=== PATIENT | male | born 1930 | race Two or more races ===

== ENCOUNTER 2016-10-26 02:55 | Inpatient (IN) | payer MEDICARE, OTHER ==
[~2016-10-26] VITALS: Ht 167.6 cm; Wt 68.0 kg
--- NOTE | 2016-10-26 02:58 | NUR ---
PT BIB PRIVATE AMBULANCE FROM [facility] FOR MED CLEARANCE AND ADMISSION TO MHU .PT AWAKE AND ALERT ANSWERING SOME SIMPLE QUESTIONS.DENIES PAIN... PT ORIENTED X 2, ABLE TO MAKE NEEDS KNOWN, NO RESP DISTRESS NOTED OR REPORTED UPON ASSESSMENT... MD AT BEDSIDE... PT HERE FOR MED CLEARANCE, THAN PSYCH EVAL, ASSISTED LIVING REPORTS THAT PT HAS BEHAVIORAL DISTURBANCES....
[2016-10-26] MEDS ORDERED: ATOR40TA PO (03:31)
[2016-10-26] MEDS ORDERED: DOCU-170 PO (03:31)
[2016-10-26] MEDS ORDERED: OLAN2.5T3 PO (03:31)
[2016-10-26] MEDS ORDERED: METO-302 PO (03:31)
[2016-10-26] MEDS ORDERED: FLUO10CA26 PO (03:31)
[2016-10-26] MEDS ORDERED: TRAZ-144 PO (03:31)
[2016-10-26] MEDS ORDERED: DONE5TAB34 PO (03:31)
[2016-10-26] MEDS ORDERED: DONE5TAB3 PO (03:31)
[2016-10-26] MEDS ORDERED: FINA5TAB3 PO (03:31)
[2016-10-26] MEDS ORDERED: BISA10SU12 RC (03:31)
[2016-10-26] MEDS ORDERED: METH10TA7 PO (03:31)
[2016-10-26] MEDS ORDERED: ISOS60TA4 PO (03:31)
[2016-10-26] MEDS ORDERED: MAGN400O4 PO (03:31)
[2016-10-26] MEDS ORDERED: MULT1TAB11 PO (03:31)
[2016-10-26] MEDS ORDERED: FENO50CA4 PO (03:31)
--- NOTE | 2016-10-26 04:20 | NUR ---
LABS DRAWN BY [facility] [employer]....
--- NOTE | 2016-10-26 04:25 | NUR ---
PT TAKEN BY SUBSTATION MANAGER VIA [facility], PT ALERT, HAS KNOWLEDGE OF PROCEDURE AND HAS ALLOWED TECH TO TRANSFER TO RADIOLOGY DEPT...
[2016-10-26 04:33] LABS: BASOPHILS % (AUTO) 0.7 % (0.0-2.0); EOSINOPHILS # (AUTO) 0.2 K/uL (0.0-0.7); EOSINOPHILS % (AUTO) 3.4 % (0.0-7.0); HEMATOCRIT 28.4 % (36.7-47.1); HEMOGLOBIN 9.5 g/dL (12.5-16.3); LYMPHOCYTES # (AUTO) 2.1 K/uL (20.0-40.0); LYMPHOCYTES % (AUTO) 41.4 % (20.5-51.5); MEAN CORPUSCULAR HGB CONC 33 g/dL (32.5-36.3); MEAN CORPUSCULAR VOLUME 95.9 fL (73.0-96.2); MONOCYTES # (AUTO) 0.6 K/uL (2.0-10.0); MONOCYTES % (AUTO) 11.2 % (0.0-11.0); NEUTROPHILS # (AUTO) 2.1 K/uL (1.8-8.9); NEUTROPHILS % (AUTO) 43.3 % (38.5-71.5); PLATELET COUNT (AUTO) 283 K/uL (152-348); RED BLOOD CELL COUNT(AUTO) 2.96 MIL/uL (4.06-5.63); RED CELL DISTRIBUTION WIDTH 13.7 % (12.1-16.2)
[2016-10-26 04:39] LABS: *BILIRUBIN,URIN NEGATIVE (NEGATIVE); *BLOOD, URINE Trace-intact (NEGATIVE); *CLARITY,URINE CLEAR (CLEAR); *COLOR,URINE STRAW (YELLOW); *KETONES,URINE NEGATIVE (NEGATIVE); *PROTEIN,URINE NEGATIVE (NEGATIVE); *UROBILINOGEN,URINE 0.2 E.U./dl (NORMAL); LEUKOCYTE ESTERASE ,URINE NEGATIVE (NEGATIVE); NITRITE, URINE NEGATIVE (NEGATIVE); UGLUCOSE NEGATIVE (NEGATIVE)
[2016-10-26 04:43] LABS: AMMONIA 29 umol/L (11-32)
[2016-10-26 04:45] LABS: ETHANOL < 3 MG/DL (0-0)
[2016-10-26 04:49] LABS: *AMPHETAMINE, URINE NEGATIVE (NEGATIVE); *BARBITURATE, URINE NEGATIVE (NEGATIVE); *CANNABINOID, URINE NEGATIVE (NEGATIVE); *COCCAINE, URINE NEGATIVE (NEGATIVE); *OPIATE, URINE NEGATIVE (NEGATIVE); *PHENCYCLIDINE SCREEN,URINE NEGATIVE (NEGATIVE)
[2016-10-26 04:53] LABS: BACTERIA,URINE NONE SEEN /HPF (NONE SEEN); RBC,URINE 0-3 /HPF (0-3); SQUAMOUS EPITHELIAL CELL,UR FEW /HPF (NONE SEEN); WBC,URINE NONE SEEN /HPF (0-3)
[2016-10-26 04:55] LABS: THYROID STIMULATING HORMONE 4.509 mIU/mL (0.358-3.740)
[2016-10-26 05:19] LABS: CALCIUM 9.4 mg/dL (8.5-10.1); CARBON DIOXIDE 27 mmol/L (21-32); CHLORIDE 107 mmol/L (98-107); CREATININE 1.3 mg/dL (0.6-1.3); GLUCOSE 98 mg/dL (74-106); POTASSIUM 4.1 mmol/L (3.5-5.1); SODIUM SERUM 142 mmol/L (136-145); UREA NITROGEN, BLOOD 31 mg/dL (7-18)
[2016-10-26 05:26] LABS: ALANINE AMINOTRANSFERASE 16 U/L (16-63); ALBUMIN 3.1 g/dL (3.4-5.0); ALKALINE PHOSPHATASE 37 U/L (50-136); ASPARTATE AMINOTRANSFERASE 23 U/L (15-37); BILIRUBIN,DIRECT 0.1 mg/dL (0.0-0.2); BILIRUBIN,TOTAL 0.2 mg/dL (0.2-1.0); TOTAL PROTEIN, SERUM 6.9 g/dL (6.4-8.2)
[2016-10-26 05:29] LABS: ACETAMINOPHEN < 2.0 ug/mL (10-30)
--- NOTE | 2016-10-26 06:26 | NUR ---
PT HAS BEEN MEDICALLY CLEARED... QASIM PLUNKETTT CALLED, LEFT MESSAGE FOR PSYCH EVAL....
--- NOTE | 2016-10-26 06:56 | NUR ---
Patient signed out to me by Dr. Byrd and he remains medically cleared for psychiatric evaluation. Lang is aware.
--- NOTE | 2016-10-26 08:06 | NUR ---
Lang Stephenson at bedside for psych eval.
--- NOTE | 2016-10-26 09:03 | NUR ---
Pt trans to MHU, NAD noted.
[2016-10-26] MEDS ORDERED: ACETAMINOPHEN 325 MG TABLET PO PRN (09:45)
[2016-10-26] MEDS ORDERED: MAG HYDROX/AL HYDROX/SIMETH 30 ML LIQUID UDC PO PRN (09:45)
[2016-10-26] MEDS ORDERED: MAGNESIUM HYDROXIDE 30 ML LIQUID UDC PO PRN ×2 (09:45→11:00)
--- NOTE | 2016-10-26 10:00 | NUR ---
0905 ADMIT TO U A 86 YEAR OLD MALE [employer] FROM ER PER W/C ,PLACED ON 5150 FOR GRAVELY DISABLED.PATIENT ATTEMPTED TO ELOPE FROM THE FACILITY, CONFUSED AND BEHAVIOR UNABLE TO MANAGE BY STAFF. PATIENT ALERT AND OX1, CALM AND COOPERATIVE WHEN CARE IS RENDERED. RESPIRATION EVEN AND UNLABORED ,NO ACUTE DISTRESS. DENIES S/S PAIN, WILL CONTINUE TO MONITOR . BODY CHECK DONE: SKIN TEAR ON LEFT HAND , CLEAN AND COVER WITH TRANSPARENT DRESSING. , [employer]TER UTILITY OPERATOR AND NOTIFIED ABOUT THE ADMISSION.
[2016-10-26] MEDS ORDERED: BISACODYL 10 MG SUPP.RECT RC PRN (11:00)
[2016-10-26 16:08] VITALS: BP 130/51
[2016-10-26] MEDS: DOCUSATE SODIUM 100 MG CAPSULE PO SCH (17:52)
[2016-10-26] MEDS: LORAZEPAM 0.5 MG TABLET PO PRN (17:54)
[2016-10-26 20:42] VITALS: BP 142/67
[2016-10-26] MEDS: OLANZAPINE ZYDIS 5 MG TAB.RAPDIS PO SCH (21:44)
[2016-10-26] MEDS: ATORVASTATIN 40 MG TABLET PO SCH (21:44)
[2016-10-27 07:30] VITALS: BP_SYST 115; BP_SYST 151; BP_DIAS 50; BP_DIAS 88
[2016-10-27] MEDS: DOCUSATE SODIUM 100 MG CAPSULE PO SCH ×2 (08:31→17:30)
[2016-10-27] MEDS: DONEPEZIL 10 MG TABLET PO SCH (08:31)
[2016-10-27] MEDS: FENOFIBRATE NANOCRYSTALLIZED 145 MG TABLET PO SCH (08:31)
[2016-10-27] MEDS: FINASTERIDE 5 MG TABLET PO SCH (08:31)
[2016-10-27] MEDS: METOPROLOL SUCCINATE XL 25 MG TAB.SR.24H PO SCH (08:32)
[2016-10-27] MEDS: OLANZAPINE ZYDIS 5 MG TAB.RAPDIS PO SCH ×2 (08:33→21:00)
[2016-10-27] MEDS: ISOSORBIDE MONONITRATE 60 MG TAB.SR.24H PO SCH (08:40)
[2016-10-27] MEDS: METHIMAZOLE 5 MG TABLET PO SCH (08:42)
[2016-10-27] MEDS: MULTIVIT, IRON, MIN NO. 8, FA TABLET PO SCH (08:44)
[2016-10-27] MEDS ORDERED: FENOFIBRATE 200 MG PO SCH (09:00)
[2016-10-27] MEDS ORDERED: METHIMAZOLE 10 MG PO SCH (09:00)
--- NOTE | 2016-10-27 10:43 | NUR ---
daughter, geo called. aware of patient requesting for his clothes and shoes. daughter geo made comment that this request for clothing is an anticipated need to leave the facility. discussed with charge nurse shanique who is aware of this from previous discussion with geo. will monitor patient . patient remains calm while looking for his clothing
[2016-10-27 15:40] VITALS: BP 93/42
[2016-10-27 15:55] VITALS: BP 123/48
--- NOTE | 2016-10-27 15:56 | NUR ---
bp recheck , denies discomfort
--- NOTE | 2016-10-27 16:00 | NUR ---
oob, walking with walker, steady. dressed up ready to go home because it is 4pm and will meet his daughter and son. will try to medicate
[2016-10-27] MEDS: LORAZEPAM 0.5 MG TABLET PO PRN (16:07)
[2016-10-27 20:21] VITALS: BP 95/45
[2016-10-27] MEDS: ATORVASTATIN 40 MG TABLET PO SCH (21:17)
--- NOTE | 2016-10-27 22:00 | NUR ---
received to care, lying in bed, asleep, but easy to awaken. remains pleasant upon approach. compliant with staff. no agitation, noted. bedtime dose of zyprexa was held due to b/p of 95/45, which didnt do up, even after being given fluids, and food. assisted as needed. denies any dizziness, or other symptoms. as of 2199, he remains asleep, in bed. no distress noted. will continue to monitor closely.
--- NOTE | 2016-10-28 06:00 | NUR ---
slept 9.5 hours, total.
[2016-10-28 07:30] VITALS: BP 119/49
[2016-10-28] MEDS: DONEPEZIL 10 MG TABLET PO SCH (08:06)
[2016-10-28] MEDS: MULTIVIT, IRON, MIN NO. 8, FA TABLET PO SCH (08:06)
[2016-10-28] MEDS: DOCUSATE SODIUM 100 MG CAPSULE PO SCH ×2 (08:06→16:13)
[2016-10-28] MEDS: OLANZAPINE ZYDIS 5 MG TAB.RAPDIS PO SCH ×2 (08:06→20:03)
[2016-10-28] MEDS: FENOFIBRATE NANOCRYSTALLIZED 145 MG TABLET PO SCH (08:06)
[2016-10-28] MEDS: ISOSORBIDE MONONITRATE 60 MG TAB.SR.24H PO SCH (08:06)
[2016-10-28] MEDS: FINASTERIDE 5 MG TABLET PO SCH (08:06)
[2016-10-28] MEDS: METOPROLOL SUCCINATE XL 25 MG TAB.SR.24H PO SCH (08:07)
[2016-10-28] MEDS: METHIMAZOLE 5 MG TABLET PO SCH (08:09)
[2016-10-28 15:26] VITALS: BP 120/56
[2016-10-28] MEDS: ATORVASTATIN 40 MG TABLET PO SCH (20:04)
[2016-10-28 20:59] VITALS: BP 140/58
[2016-10-29 07:17] LABS: BASOPHILS % (AUTO) 0.8 % (0.0-2.0); EOSINOPHILS # (AUTO) 0.2 K/uL (0.0-0.7); EOSINOPHILS % (AUTO) 3.5 % (0.0-7.0); HEMATOCRIT 31.9 % (36.7-47.1); HEMOGLOBIN 10.7 g/dL (12.5-16.3); LYMPHOCYTES # (AUTO) 1.9 K/uL (20.0-40.0); LYMPHOCYTES % (AUTO) 39.4 % (20.5-51.5); MEAN CORPUSCULAR HEMOGLOBIN 31.8 uug (23.8-33.4); MEAN CORPUSCULAR HGB CONC 34 g/dL (32.5-36.3); MEAN CORPUSCULAR VOLUME 95.1 fL (73.0-96.2); MONOCYTES # (AUTO) 0.5 K/uL (2.0-10.0); MONOCYTES % (AUTO) 10.5 % (0.0-11.0); NEUTROPHILS # (AUTO) 2.2 K/uL (1.8-8.9); NEUTROPHILS % (AUTO) 45.8 % (38.5-71.5); PLATELET COUNT (AUTO) 298 K/uL (152-348); RED BLOOD CELL COUNT(AUTO) 3.35 MIL/uL (4.06-5.63); RED CELL DISTRIBUTION WIDTH 13.8 % (12.1-16.2); WHITE BLOOD COUNT (AUTO) 4.8 K/uL (3.6-10.2)
[2016-10-29 07:30] VITALS: BP 139/54
[2016-10-29 08:11] LABS: CALCIUM 9.1 mg/dL (8.5-10.1); POTASSIUM 3.9 mmol/L (3.5-5.1)
[2016-10-29] MEDS: METHIMAZOLE 5 MG TABLET PO SCH (10:02)
[2016-10-29] MEDS: DONEPEZIL 10 MG TABLET PO SCH (10:02)
[2016-10-29] MEDS: DOCUSATE SODIUM 100 MG CAPSULE PO SCH ×2 (10:02→17:29)
[2016-10-29] MEDS: FINASTERIDE 5 MG TABLET PO SCH (10:02)
[2016-10-29] MEDS: MULTIVIT, IRON, MIN NO. 8, FA TABLET PO SCH (10:03)
[2016-10-29] MEDS: OLANZAPINE ZYDIS 5 MG TAB.RAPDIS PO SCH ×2 (10:03→20:05)
[2016-10-29] MEDS: FENOFIBRATE NANOCRYSTALLIZED 145 MG TABLET PO SCH (10:03)
[2016-10-29 11:00] VITALS: BP 98/60
[2016-10-29] MEDS: METOPROLOL SUCCINATE XL 25 MG TAB.SR.24H PO SCH (11:00)
[2016-10-29] MEDS: ISOSORBIDE MONONITRATE 60 MG TAB.SR.24H PO SCH (11:00)
[2016-10-29 15:23] VITALS: BP 124/46
--- NOTE | 2016-10-29 16:33 | NUR ---
Initial discharge instructions: The patient resides at [facility] [[address] [facility], [place] [address] ]. Spoke with Sigrid at the facility who stated that they will be able to accept the patient back upon discharge. SPoke with the patients daughter Rosemarie Jackson (DPMARCIA) who stated that she would like for the patient to return to the facility as well. SS will speak with patient, family, and MD regarding most appropriate discharge plan. SS will form a safe and proper discharge.
[2016-10-29] MEDS: ATORVASTATIN 40 MG TABLET PO SCH (20:05)
[2016-10-29 20:44] VITALS: BP 136/54
[2016-10-30 07:30] VITALS: BP 136/64
[2016-10-30] MEDS: DONEPEZIL 10 MG TABLET PO SCH (08:25)
[2016-10-30] MEDS: DOCUSATE SODIUM 100 MG CAPSULE PO SCH ×2 (08:25→16:21)
[2016-10-30] MEDS: FENOFIBRATE NANOCRYSTALLIZED 145 MG TABLET PO SCH (08:25)
[2016-10-30] MEDS: MULTIVIT, IRON, MIN NO. 8, FA TABLET PO SCH (08:25)
[2016-10-30] MEDS: FINASTERIDE 5 MG TABLET PO SCH (08:25)
[2016-10-30] MEDS: OLANZAPINE ZYDIS 5 MG TAB.RAPDIS PO SCH ×3 (08:25→20:35)
[2016-10-30] MEDS: METHIMAZOLE 5 MG TABLET PO SCH (08:27)
[2016-10-30 10:30] VITALS: BP 100/54
[2016-10-30] MEDS: METOPROLOL SUCCINATE XL 25 MG TAB.SR.24H PO SCH (10:30)
[2016-10-30] MEDS: ISOSORBIDE MONONITRATE 60 MG TAB.SR.24H PO SCH (10:30)
--- NOTE | 2016-10-30 14:58 | NUR ---
WEEKLY MEETING PO INTAKE 75-100%, NO DIET RECOMMENDATION AT THIS TIME LAST BM ON 10/28 SKIN INTACT, SKIN TEAR ON LEFT HAND NOTED 3 LB WEIGHT LOSS IN 3 DAYS, NOT CONSIDERED SIGNIFICANT WT LOSS, REC TO [facility] PT MEDS: MVI, LIPITOR, COLACE NO DNI NOTED LABS: 10/29: H/H 10.7/31.9 (L/L), BUN 23 (H) NO NUTRITION DIAGNOSIS AT THIS TIME Addendum: 10/30/16 at [address] Amended: Links added.
[2016-10-30 16:00] VITALS: BP 125/54
[2016-10-30 20:24] VITALS: BP 126/56
[2016-10-30] MEDS: ATORVASTATIN 40 MG TABLET PO SCH (20:34)
--- NOTE | 2016-10-30 22:00 | NUR ---
received to care, lying in bed, asleep, but pleasant upon approach. remains isolative. compliant with medications and staff direction. as of 2199,he remains asleep. no distress noted. will continue to monitor closely.
--- NOTE | 2016-10-31 06:00 | NUR ---
slept 8.5 hours. remains asleep, but easy to awaken. no distress noted. will continue to monitor closely.
[2016-10-31 07:30] VITALS: BP 121/52
[2016-10-31] MEDS: METHIMAZOLE 5 MG TABLET PO SCH ×2 (09:00→12:59)
[2016-10-31] MEDS: METOPROLOL SUCCINATE XL 25 MG TAB.SR.24H PO SCH (09:00)
[2016-10-31] MEDS: ISOSORBIDE MONONITRATE 60 MG TAB.SR.24H PO SCH (09:00)
[2016-10-31] MEDS: MULTIVIT, IRON, MIN NO. 8, FA TABLET PO SCH (09:31)
[2016-10-31] MEDS: OLANZAPINE ZYDIS 5 MG TAB.RAPDIS PO SCH ×3 (09:31→20:52)
[2016-10-31] MEDS: FINASTERIDE 5 MG TABLET PO SCH (09:31)
[2016-10-31] MEDS: DOCUSATE SODIUM 100 MG CAPSULE PO SCH ×2 (09:31→17:41)
[2016-10-31] MEDS: DONEPEZIL 10 MG TABLET PO SCH (09:31)
[2016-10-31] MEDS: FENOFIBRATE NANOCRYSTALLIZED 145 MG TABLET PO SCH (09:37)
[2016-10-31 15:14] VITALS: BP 132/50
--- NOTE | 2016-10-31 17:12 | NUR ---
patients medication scanned for wrong date 10/02/16, i used tommorrow s date by mistake and pt will receive on 10/02/16 AT 0900
[2016-10-31 20:00] VITALS: BP 119/51
[2016-10-31] MEDS: ATORVASTATIN 40 MG TABLET PO SCH (20:52)
--- NOTE | 2016-10-31 22:00 | NUR ---
received to care, awake, appearing anxious, but pleasant upon approach. remains isolative. compliant with medications and staff direction. as of 2199, he remains awake. pacing the hallway, intermittently. states he wants to leave, and go to his room. he was oriented to his hospital room, several times. bedtime snack, given. will continue to monitor closely.
[2016-10-31] MEDS: TEMAZEPAM 7.5 MG CAPSULE PO PRN (22:59)
--- NOTE | 2016-10-31 22:59 | NUR ---
PRN restoril given, for insomnia. assisted to bed, and made comfortable. no distress noted. will continue to monitor closely.
--- NOTE | 2016-10-31 23:30 | NUR ---
appears to be asleep. no distress noted.
--- NOTE | 2016-11-01 06:08 | NUR ---
slept 7 hours. remains asleep, but easy to awaken. no distress noted. will continue to monitor closely.
[2016-11-01 07:30] VITALS: BP 124/56
[2016-11-01] MEDS: OLANZAPINE ZYDIS 5 MG TAB.RAPDIS PO SCH ×2 (08:44→18:28)
[2016-11-01] MEDS: METHIMAZOLE 5 MG TABLET PO SCH (08:45)
[2016-11-01] MEDS: ISOSORBIDE MONONITRATE 60 MG TAB.SR.24H PO SCH (08:45)
[2016-11-01] MEDS: FINASTERIDE 5 MG TABLET PO SCH (08:46)
[2016-11-01] MEDS: DOCUSATE SODIUM 100 MG CAPSULE PO SCH ×2 (08:46→18:28)
[2016-11-01] MEDS: DONEPEZIL 10 MG TABLET PO SCH (08:46)
[2016-11-01] MEDS: FENOFIBRATE NANOCRYSTALLIZED 145 MG TABLET PO SCH (09:50)
[2016-11-01] MEDS: MULTIVIT, IRON, MIN NO. 8, FA TABLET PO SCH (09:50)
[2016-11-01 15:14] VITALS: BP 104/41
[2016-11-01] MEDS: ATORVASTATIN 40 MG TABLET PO SCH (20:16)
[2016-11-01 20:30] VITALS: BP 115/52
[2016-11-02 07:53] VITALS: BP 125/49
[2016-11-02 07:58] LABS: EOSINOPHILS # (AUTO) 0.1 K/uL (0.0-0.7); EOSINOPHILS % (AUTO) 3.2 % (0.0-7.0); HEMATOCRIT 31.4 % (40-50); HEMOGLOBIN 10.7 G/DL (14.0-18.0); LYMPHOCYTES # (AUTO) 1.9 K/uL (20.0-40.0); LYMPHOCYTES % (AUTO) 42.7 % (20.5-51.5); MEAN CORPUSCULAR HEMOGLOBIN 32.6 UUG (27.0-31.0); MEAN CORPUSCULAR HGB CONC 34 g/dL (32.0-37.0); MEAN CORPUSCULAR VOLUME 95.8 FL (82.0-92.0); MONOCYTES # (AUTO) 0.5 K/uL (2.0-10.0); MONOCYTES % (AUTO) 11.1 % (0.0-11.0); NEUTROPHILS # (AUTO) 1.9 K/uL (1.8-8.9); PLATELET COUNT (AUTO) 258 K/UL (150-450); RED BLOOD CELL COUNT(AUTO) 3.28 MIL/UL (4.7-6.1); RED CELL DISTRIBUTION WIDTH 13.7 % (11.5-14.5); WHITE BLOOD COUNT (AUTO) 4.4 K/UL (4.0-11.2)
[2016-11-02 08:05] LABS: ALBUMIN 3.3 g/dL (3.4-5.0); BILIRUBIN,TOTAL 0.2 mg/dL (0.2-1.0); CALCIUM 9.2 mg/dL (8.5-10.1); CREATININE 0.9 mg/dL (0.6-1.3); MAGNESIUM 1.7 mg/dL (1.8-2.4); PHOSPHOROUS 3.1 mg/dL (2.5-4.9); POTASSIUM 3.7 mmol/L (3.5-5.1); TOTAL PROTEIN, SERUM 7.2 g/dL (6.4-8.2)
[2016-11-02] MEDS: ISOSORBIDE MONONITRATE 60 MG TAB.SR.24H PO SCH (08:29)
[2016-11-02] MEDS: OLANZAPINE ZYDIS 5 MG TAB.RAPDIS PO SCH ×2 (08:29→16:13)
[2016-11-02] MEDS: DOCUSATE SODIUM 100 MG CAPSULE PO SCH ×2 (08:29→16:14)
[2016-11-02] MEDS: DONEPEZIL 10 MG TABLET PO SCH (08:29)
[2016-11-02] MEDS: MULTIVIT, IRON, MIN NO. 8, FA TABLET PO SCH (08:29)
[2016-11-02] MEDS: FINASTERIDE 5 MG TABLET PO SCH (08:29)
[2016-11-02] MEDS: METHIMAZOLE 5 MG TABLET PO SCH (08:29)
[2016-11-02] MEDS: FENOFIBRATE NANOCRYSTALLIZED 145 MG TABLET PO SCH (08:29)
[2016-11-02] MEDS ORDERED: MAGNESIUM OXIDE 400 MG TABLET PO ONE (10:00)
[2016-11-02 15:39] VITALS: BP 133/54
[2016-11-02] MEDS: TEMAZEPAM 7.5 MG CAPSULE PO PRN (20:14)
[2016-11-02] MEDS: ATORVASTATIN 40 MG TABLET PO SCH (20:15)
[2016-11-02 20:51] VITALS: BP 122/50
[2016-11-03 07:30] VITALS: BP 144/66
[2016-11-03] MEDS: FINASTERIDE 5 MG TABLET PO SCH (08:16)
[2016-11-03] MEDS: OLANZAPINE ZYDIS 5 MG TAB.RAPDIS PO SCH ×2 (08:16→17:17)
[2016-11-03] MEDS: MULTIVIT, IRON, MIN NO. 8, FA TABLET PO SCH (08:16)
[2016-11-03] MEDS: FENOFIBRATE NANOCRYSTALLIZED 145 MG TABLET PO SCH (08:16)
[2016-11-03] MEDS: DOCUSATE SODIUM 100 MG CAPSULE PO SCH ×2 (08:16→17:17)
[2016-11-03] MEDS: ISOSORBIDE MONONITRATE 60 MG TAB.SR.24H PO SCH (08:17)
[2016-11-03] MEDS: DONEPEZIL 10 MG TABLET PO SCH (08:17)
[2016-11-03] MEDS: METHIMAZOLE 5 MG TABLET PO SCH (08:18)
[2016-11-03 15:41] VITALS: BP 129/52
[2016-11-03 20:00] VITALS: BP 120/54
[2016-11-03] MEDS: ATORVASTATIN 40 MG TABLET PO SCH (20:13)
[2016-11-03] MEDS: TEMAZEPAM 7.5 MG CAPSULE PO PRN (20:14)
[2016-11-04 07:30] VITALS: BP 131/49
[2016-11-04] MEDS: METHIMAZOLE 5 MG TABLET PO SCH (08:10)
[2016-11-04] MEDS: FINASTERIDE 5 MG TABLET PO SCH (08:10)
[2016-11-04] MEDS: DOCUSATE SODIUM 100 MG CAPSULE PO SCH (08:10)
[2016-11-04] MEDS: MULTIVIT, IRON, MIN NO. 8, FA TABLET PO SCH (08:10)
[2016-11-04] MEDS: FENOFIBRATE NANOCRYSTALLIZED 145 MG TABLET PO SCH (08:10)
[2016-11-04 08:11] VITALS: BP 131/49
[2016-11-04] MEDS: DONEPEZIL 10 MG TABLET PO SCH (08:11)
[2016-11-04] MEDS: ISOSORBIDE MONONITRATE 60 MG TAB.SR.24H PO SCH (08:11)
[2016-11-04] MEDS: OLANZAPINE ZYDIS 5 MG TAB.RAPDIS PO SCH (08:11)
--- NOTE | 2016-11-04 11:33 | NUR ---
DC Note: The patient will be discharged today back to [facility] [[address], [place] [address] ] via ambulance. Spoke with Sigrid at the facility who stated that they will be able to accept the patient back today. Spoke with the patients daughter Rosemarie Jackson (DPOA) and she is aware and agreeable with the discharge plan. The patient will follow-up with test engineering intern Dr. Link and psychiatrist Dr. Edwards at the facility.
--- NOTE | 2016-11-04 13:15 | NUR ---
Pt left unit on [facility] accompanied by 2 pet technologist. Pt is calm and cooperative. Pleasant. Denies pain or discomfort. Denies Si and Hi. No aggressive or combative behavior noted. V/S stable. Left with all noted belongings and paperwork. In no acute distress.
== END 2016-11-04 13:15 | DRG 885 ==
LOC: ER 03:03 → GPS 08:55
PROVIDERS: ADMIT Psychiatry & Neurology Psychiatry; ATTEND Family Medicine
DX: F29 Unspecified psychosis not due to a substance or known physiological condition (principal); F03.91 Unspecified dementia, unspecified severity, with behavioral disturbance; D68.9 Coagulation defect, unspecified; D64.9 Anemia, unspecified; E11.9 Type 2 diabetes mellitus without complications; E78.5 Hyperlipidemia, unspecified; F32.9 Major depressive disorder, single episode, unspecified; F41.9 Anxiety disorder, unspecified; I25.10 Atherosclerotic heart disease of native coronary artery without angina pectoris; N40.0 Benign prostatic hyperplasia without lower urinary tract symptoms; Z95.1 Presence of aortocoronary bypass graft; E03.9 Hypothyroidism, unspecified; E88.09 Other disorders of plasma-protein metabolism, not elsewhere classified; I10 Essential (primary) hypertension; Z79.899 Other long term (current) drug therapy; G93.89 Other specified disorders of brain
CPT/HCPCS: 36415; 70030-TC; 70450; 71010; 80307; 83735; 84100; 84443; 85025; 85730; 87086; 93005; 97001; A4663; G0480-TC; G6040-TC